=== PATIENT | female | born 1940 | race African-American/Black ===

== ENCOUNTER 2021-12-19 09:39 | Inpatient (IN) | payer MEDICARE, MEDICAID ==
[~2021-12-19] VITALS: Ht 162.6 cm; Wt 83.5 kg
[~2021-12-19 09:39] MED LIST: ASPI-1497 PO; CLAR10 PO; MESA800T PO; OMEP20CA14 PO; PANTOPRAZOLE SODIUM 40 MG/VIAL IV SCH; SIMV-46 PO
[2021-12-19] MEDS ORDERED: PANTOPRAZOLE SODIUM 40 MG/VIAL IV STA (11:49)
[2021-12-19] MEDS ORDERED: ONDANSETRON HCL 4MG/2ML INJ IV STA (11:49)
[2021-12-19] MEDS ORDERED: SODIUM CHLORIDE 0.9% 500 ML IV ONE (12:00)
[2021-12-19] MEDS ORDERED: MORPHINE SULFATE 4 MG/ML CPJ (NOT FOR IM USE) IV ONE (12:00)
[2021-12-19 12:52] LABS: MEAN CORPUSCULAR HEMOGLOBIN 19.1 pg (28.0-32.0); MEAN CORPUSCULAR VOLUME 65.6 fL (81.0-99.0); MEAN PLATELET VOLUME 6.9 fl (7.4-10.4); PLATELET 333 x1000/uL (130-400); RED BLOOD CELL COUNT 2.81 mill/uL (4.2-5.4); RED CELL DISTRIBUTION WIDTH 21.9 % (11.6-14.6)
[2021-12-19 12:56] LABS: CHLORIDE 106 mEq/L (98-107); HEMOGLOBIN. 5.4 g/dL (12.0-16.0)
[2021-12-19 12:57] LABS: HEMATOCRIT. 18.5 % (36.0-48.0)
[2021-12-19 13:04] LABS: ETHANOL BLOOD < 10 mg/dL
[2021-12-19 14:02] LABS: PLATELET ESTIMATE NORMAL
[2021-12-19 15:08] LABS: CLARITY URINE CLOUDY (CLEAR); COLOR URINE YELLOW (YELLOW); KETONES URINE TRACE (NEGATIVE); LEUKOCYTE ESTERASE URINE TRACE (NEGATIVE); NITRITE URINE NEGATIVE (NEGATIVE); OCCULT BLOOD URINE NEGATIVE (NEGATIVE); PH URINE 5.5 (4.5-8.0); PROTEIN URINE TRACE (NEGATIVE); SPECIFIC GRAVITY URINE 1.021 (1.005-1.030)
[2021-12-19] MEDS ORDERED: PANTOPRAZOLE SODIUM 40 MG/VIAL IV NR (15:30)
[2021-12-19] MEDS ORDERED: CEFTRIAXONE 1 G PREMIX 50 ML IV NR (15:30)
[2021-12-19 15:32] LABS: *AMPHETAMINES SCREEN URINE NEGATIVE (NEGATIVE); *BARBITURATES SCREEN URINE NEGATIVE (NEGATIVE); *BENZODIAZEPINES SCREEN URINE NEGATIVE (NEGATIVE); *COCAINE SCREEN URINE NEGATIVE (NEGATIVE); CANNABINOID URINE SCREEN NEGATIVE (NEGATIVE); METHADONE URINE SCREEN NEGATIVE (NEGATIVE); OPIATES URINE SCREEN NEGATIVE (NEGATIVE); PHENCYCLIDINE URINE SCREEN NEGATIVE (NEGATIVE)
[2021-12-19] MEDS ORDERED: ONDANSETRON HCL 4MG/2ML INJ IV PRN (16:15)
[2021-12-19] MEDS ORDERED: CLONIDINE 0.1MG TABLET PO PRN (16:15)
[2021-12-19] MEDS ORDERED: IPRATROPIUM/ALBUTEROL 0.5-3(2.5)MG/3ML NEB HHN PRN (16:15)
[2021-12-19] MEDS ORDERED: SODIUM CHLORIDE 0.9% 1,000 ML IV SCH (16:15)
[2021-12-19] MEDS ORDERED: DIPHENHYDRAMINE 50MG/ML VIAL IV PRN (16:15)
[2021-12-19 16:17] LABS: MEAN CORPUSCULAR HEMOGLOBIN 18.8 pg (28.0-32.0); MEAN PLATELET VOLUME 6.6 fl (7.4-10.4); PLATELET 319 x1000/uL (130-400); RED BLOOD CELL COUNT 2.66 mill/uL (4.2-5.4); RED CELL DISTRIBUTION WIDTH 21.3 % (11.6-14.6)
[2021-12-19 16:23] LABS: HEMATOCRIT. 17.3 % (36.0-48.0)
[2021-12-19 16:27] LABS: CHLORIDE 109 mEq/L (98-107)
[2021-12-19] MEDS ORDERED: LEVOFLOXACIN 500MG PREMIX 100 ML IV SCH (16:30)
[2021-12-19] MEDS ORDERED: METHYLPREDNISOLONE SOD SUCC 125 MG/2 ML VIAL IV SCH (16:30)
[2021-12-19 16:35] LABS: TOTAL IRON BINDING CAPACITY 388 ug/dL (250-450)
[2021-12-19 16:56] LABS: FERRITIN < 5 ng/mL (10-291)
[2021-12-19 16:58] LABS: VITAMIN B12 SERUM 814 pg/mL (211-911)
[2021-12-19] MEDS ORDERED: METRONIDAZOLE 500 MG PREMIX 100 ML IV SCH (17:00)
[2021-12-19 19:15] VITALS: BP 127/70
[2021-12-19 19:17] LABS: HEMATOCRIT 19.1 % (36.0-48.0); HEMOGLOBIN 5.4 g/dL (12.0-16.0)
[2021-12-19 20:00] VITALS: BP 127/70
[2021-12-19] MEDS ORDERED: PANTOPRAZOLE SODIUM 40 MG/VIAL IV SCH (21:00)
[2021-12-19] MEDS ORDERED: METHYLPREDNISOLONE SOD SUCC 40 MG/ML VIAL IV SCH (22:00)
[2021-12-19] MEDS ORDERED: CEFTRIAXONE 1 G PREMIX 50 ML IV SCH (22:00)
[2021-12-19] MEDS ORDERED: HYDROCODONE/ACETAMINOPHEN 5/325MG TABLET PO PRN (22:11)
[2021-12-19 22:18] VITALS: BP 132/62
[2021-12-19 22:40] LABS: PLATELET ESTIMATE NORMAL
[2021-12-19 22:41] VITALS: BP 142/71
[2021-12-19] MEDS: SODIUM CHLORIDE 0.9% 1,000 ML IV SCH (23:15)
[2021-12-19] MEDS: PANTOPRAZOLE SODIUM 40 MG/VIAL IV SCH (23:15)
[2021-12-19] MEDS: METHYLPREDNISOLONE SOD SUCC 125 MG/2 ML VIAL IV SCH (23:15)
[2021-12-19 23:41] VITALS: BP 150/74
[2021-12-20] VITALS (13 sets, daily range): BP systolic 111–145; BP diastolic 58–76
[2021-12-20] MEDS ORDERED: LEVOFLOXACIN 500MG PREMIX 100 ML IV SCH
[2021-12-20] MEDS: LEVOFLOXACIN 500MG PREMIX 100 ML IV SCH ×2 (01:59→20:47)
[2021-12-20 02:39] LABS: HEMATOCRIT 23.3 % (36.0-48.0)
[2021-12-20] MEDS: METRONIDAZOLE 500 MG PREMIX 100 ML IV SCH ×3 (03:08→21:46)
[2021-12-20 05:35] LABS: HEMATOCRIT. 22.8 % (36.0-48.0); MEAN CORPUSCULAR HEMOGLOBIN 20.7 pg (28.0-32.0); MEAN CORPUSCULAR VOLUME 69.9 fL (81.0-99.0); MEAN PLATELET VOLUME 6.7 fl (7.4-10.4); PLATELET 257 x1000/uL (130-400); RED BLOOD CELL COUNT 3.27 mill/uL (4.2-5.4); RED CELL DISTRIBUTION WIDTH 24.1 % (11.6-14.6)
[2021-12-20 05:45] LABS: CHLORIDE 108 mEq/L (98-107)
[2021-12-20 05:46] LABS: INR 1.1; PROTHROMBIN TIME 11.8 sec (9.6-11.0)
[2021-12-20 05:47] LABS: HEMOGLOBIN. 6.8 g/dL (12.0-16.0)
[2021-12-20] MEDS: SUCRALFATE 1 G/10 ML UDC PO SCH ×4 (06:33→20:48)
[2021-12-20] MEDS ORDERED: PANTOPRAZOLE SODIUM 40 MG/VIAL IV SCH (09:00)
[2021-12-20] MEDS: PANTOPRAZOLE SODIUM 40 MG/VIAL IV SCH (09:06)
[2021-12-20] MEDS: METHYLPREDNISOLONE SOD SUCC 125 MG/2 ML VIAL IV SCH ×2 (09:06→20:48)
[2021-12-20 10:46] LABS: NUCLEATED RED BLOOD CELLS 3 /100 WBC; PLATELET ESTIMATE NORMAL
[2021-12-20] MEDS: SODIUM CHLORIDE 0.9% 1,000 ML IV SCH (12:34)
[2021-12-20 16:24] LABS: HEMATOCRIT 24.8 % (36.0-48.0); HEMOGLOBIN 7.5 g/dL (12.0-16.0)
[2021-12-20 19:18] LABS: HEMATOCRIT 24.2 % (36.0-48.0); HEMOGLOBIN 7.2 g/dL (12.0-16.0)
[2021-12-21] VITALS (8 sets, daily range): BP systolic 122–152; BP diastolic 65–86
[2021-12-21] MEDS: SODIUM CHLORIDE 0.9% 1,000 ML IV SCH ×2 (02:19→17:51)
[2021-12-21] MEDS: METRONIDAZOLE 500 MG PREMIX 100 ML IV SCH ×3 (06:24→22:18)
[2021-12-21] MEDS: SUCRALFATE 1 G/10 ML UDC PO SCH ×4 (06:24→22:18)
[2021-12-21] MEDS: ACETAMINOPHEN 325MG TABLET PO PRN (07:44)
[2021-12-21 07:45] LABS: HEMATOCRIT 28.5 % (36.0-48.0); HEMOGLOBIN 8.8 g/dL (12.0-16.0)
[2021-12-21] MEDS: PANTOPRAZOLE SODIUM 40 MG/VIAL IV SCH (08:52)
[2021-12-21] MEDS: METHYLPREDNISOLONE SOD SUCC 125 MG/2 ML VIAL IV SCH ×2 (08:53→22:17)
[2021-12-21 16:05] LABS: HEMOGLOBIN 8.5 g/dL (12.0-16.0)
[2021-12-21] MEDS: SORBITOL 70% SOLN 30ML PO NR (16:05)
[2021-12-21] MEDS ORDERED: METOCLOPRAMIDE HCL 10MG/2ML VIAL IV NR ×2 (16:30→20:30)
[2021-12-21] MEDS ORDERED: BISACODYL 5MG TABLET PO NR ×2 (16:30→20:30)
[2021-12-21] MEDS: IRON SUCROSE COMPLEX 100 MG/5 ML ML IV SCH (17:52)
[2021-12-21] MEDS ORDERED: SORBITOL 70% SOLN 30ML PO NR (21:00)
[2021-12-21] MEDS: LEVOFLOXACIN 500MG PREMIX 100 ML IV SCH (22:33)
[2021-12-22] VITALS: BP 153/93
[2021-12-22 04:00] VITALS: BP 123/76
[2021-12-22] MEDS: METRONIDAZOLE 500 MG PREMIX 100 ML IV SCH ×3 (06:48→21:45)
[2021-12-22] MEDS: SODIUM CHLORIDE 0.9% 1,000 ML IV SCH ×2 (06:48→21:47)
[2021-12-22] MEDS: SUCRALFATE 1 G/10 ML UDC PO SCH ×4 (06:48→21:46)
[2021-12-22 06:57] LABS: INR 1.1; PROTHROMBIN TIME 11.4 sec (9.6-11.0)
[2021-12-22 06:59] LABS: HEMATOCRIT. 31.4 % (36.0-48.0); HEMOGLOBIN. 9.5 g/dL (12.0-16.0); MEAN CORPUSCULAR HEMOGLOBIN 22.2 pg (28.0-32.0); MEAN CORPUSCULAR VOLUME 73.6 fL (81.0-99.0); MEAN PLATELET VOLUME 7.6 fl (7.4-10.4); PLATELET 339 x1000/uL (130-400); RED BLOOD CELL COUNT 4.26 mill/uL (4.2-5.4)
[2021-12-22 07:16] LABS: CHLORIDE 108 mEq/L (98-107)
[2021-12-22 08:00] VITALS: BP 146/61
[2021-12-22] MEDS ORDERED: POTASSIUM CHLORIDE 20MEQ TABLET SR PO NR (08:30)
[2021-12-22] MEDS ORDERED: NALOXONE HCL 0.4MG/ML VIAL IV PRN (08:30)
[2021-12-22] MEDS: METHYLPREDNISOLONE SOD SUCC 125 MG/2 ML VIAL IV SCH ×2 (09:09→21:47)
[2021-12-22] MEDS: PANTOPRAZOLE SODIUM 40 MG/VIAL IV SCH (09:09)
[2021-12-22] MEDS: ACETAMINOPHEN 325MG TABLET PO PRN ×2 (09:10→18:13)
[2021-12-22 12:00] VITALS: BP 155/84
[2021-12-22] MEDS ORDERED: SIMETHICONE 40 MG/0.6 ML 15ML ONE (13:05)
[2021-12-22] MEDS ORDERED: ONDANSETRON HCL 4MG/2ML INJ ONE (13:13)
[2021-12-22] MEDS ORDERED: DEXAMETHASONE 4MG/ML 1ML VIAL ONE (13:13)
[2021-12-22] MEDS ORDERED: PROPOFOL 200MG/20ML VIAL IV ONE (13:13)
[2021-12-22] MEDS: SORBITOL 70% SOLN 30ML PO NR (15:06)
[2021-12-22 16:00] VITALS: BP 129/68
[2021-12-22] MEDS ORDERED: MESALAMINE 500 MG CAPSULE.ER PO SCH (17:00)
[2021-12-22] MEDS: IRON SUCROSE COMPLEX 100 MG/5 ML ML IV SCH (17:59)
[2021-12-22] MEDS: MESALAMINE 400 MG CAPSULE.DR PO SCH (18:13)
[2021-12-22 20:00] VITALS: BP 127/66
[2021-12-22 21:45] LABS: PLATELET ESTIMATE NORMAL
[2021-12-22] MEDS: LEVOFLOXACIN 250MG PREMIX 50 ML IV SCH (21:49)
[2021-12-23] VITALS: BP 162/92
[2021-12-23] MEDS: CLONIDINE 0.1MG TABLET PO PRN ×2 (01:33→05:53)
[2021-12-23 04:00] VITALS: BP 182/91
[2021-12-23] MEDS: METRONIDAZOLE 500 MG PREMIX 100 ML IV SCH ×3 (05:53→21:18)
[2021-12-23] MEDS: SUCRALFATE 1 G/10 ML UDC PO SCH ×4 (06:32→21:18)
[2021-12-23 07:05] LABS: HEMATOCRIT. 26.4 % (36.0-48.0); HEMOGLOBIN. 8.2 g/dL (12.0-16.0); MEAN CORPUSCULAR HEMOGLOBIN 22.6 pg (28.0-32.0); MEAN CORPUSCULAR VOLUME 72.8 fL (81.0-99.0); MEAN PLATELET VOLUME 7.6 fl (7.4-10.4); PLATELET 259 x1000/uL (130-400); RED BLOOD CELL COUNT 3.63 mill/uL (4.2-5.4); RED CELL DISTRIBUTION WIDTH 26.4 % (11.6-14.6)
[2021-12-23 07:15] LABS: CHLORIDE 110 mEq/L (98-107)
[2021-12-23 08:00] VITALS: BP 160/70
[2021-12-23] MEDS ORDERED: POTASSIUM CHLORIDE 20MEQ TABLET SR PO NR (09:15)
[2021-12-23] MEDS: METHYLPREDNISOLONE SOD SUCC 125 MG/2 ML VIAL IV SCH ×2 (09:36→21:18)
[2021-12-23] MEDS: PANTOPRAZOLE SODIUM 40 MG/VIAL IV SCH (09:36)
[2021-12-23] MEDS: MESALAMINE 400 MG CAPSULE.DR PO SCH ×3 (09:53→18:00)
[2021-12-23 12:00] VITALS: BP 142/72
[2021-12-23 16:00] VITALS: BP 138/88
[2021-12-23] MEDS: SORBITOL 70% SOLN 30ML PO NR (18:00)
[2021-12-23] MEDS: IRON SUCROSE COMPLEX 100 MG/5 ML ML IV SCH (19:04)
[2021-12-23 20:00] VITALS: BP 128/71
[2021-12-23] MEDS: LEVOFLOXACIN 250MG PREMIX 50 ML IV SCH (21:17)
[2021-12-23 21:58] LABS: PLATELET ESTIMATE NORMAL
[2021-12-24] VITALS: BP 158/79
[2021-12-24] MEDS: SODIUM CHLORIDE 0.9% 1,000 ML IV SCH ×2 (02:21→18:03)
[2021-12-24 04:00] VITALS: BP 177/91
[2021-12-24 04:07] LABS: OVA & PARASITE EXAM Final report (.)
[2021-12-24] MEDS: CLONIDINE 0.1MG TABLET PO PRN (06:06)
[2021-12-24] MEDS: METRONIDAZOLE 500 MG PREMIX 100 ML IV SCH ×3 (06:06→21:27)
[2021-12-24] MEDS: SUCRALFATE 1 G/10 ML UDC PO SCH ×4 (06:08→21:27)
[2021-12-24 07:19] LABS: HEMATOCRIT. 27.1 % (36.0-48.0); HEMOGLOBIN. 8.4 g/dL (12.0-16.0); MEAN CORPUSCULAR HEMOGLOBIN 22.6 pg (28.0-32.0); MEAN CORPUSCULAR VOLUME 73.1 fL (81.0-99.0); MEAN PLATELET VOLUME 8.5 fl (7.4-10.4); PLATELET 232 x1000/uL (130-400); RED BLOOD CELL COUNT 3.71 mill/uL (4.2-5.4); RED CELL DISTRIBUTION WIDTH 26.8 % (11.6-14.6)
[2021-12-24 07:36] LABS: CHLORIDE 108 mEq/L (98-107)
[2021-12-24 08:00] VITALS: BP 131/74
[2021-12-24] MEDS ORDERED: POTASSIUM CHLORIDE 20MEQ TABLET SR PO NR (09:30)
[2021-12-24] MEDS: PANTOPRAZOLE SODIUM 40 MG/VIAL IV SCH (09:43)
[2021-12-24] MEDS: METHYLPREDNISOLONE SOD SUCC 125 MG/2 ML VIAL IV SCH ×2 (09:48→21:28)
[2021-12-24] MEDS: MESALAMINE 400 MG CAPSULE.DR PO SCH ×3 (09:49→17:58)
[2021-12-24 12:00] VITALS: BP 154/86
[2021-12-24 16:00] VITALS: BP 162/81
[2021-12-24] MEDS: SORBITOL 70% SOLN 30ML PO NR (16:05)
[2021-12-24 16:57] LABS: PLATELET ESTIMATE NORMAL
[2021-12-24] MEDS: IRON SUCROSE COMPLEX 100 MG/5 ML ML IV SCH (17:59)
[2021-12-24 20:00] VITALS: BP 116/74
[2021-12-24 20:02] LABS: HEMATOCRIT 30.3 % (36.0-48.0); HEMOGLOBIN 9.3 g/dL (12.0-16.0)
[2021-12-25] VITALS: BP 135/78
[2021-12-25 01:54] LABS: HEMATOCRIT 29.1 % (36.0-48.0); HEMOGLOBIN 9.1 g/dL (12.0-16.0)
[2021-12-25 04:00] VITALS: BP 128/68
[2021-12-25 06:12] LABS: HEMATOCRIT. 28.7 % (36.0-48.0); HEMOGLOBIN. 8.9 g/dL (12.0-16.0); MEAN CORPUSCULAR HEMOGLOBIN 22.7 pg (28.0-32.0); MEAN CORPUSCULAR VOLUME 73.3 fL (81.0-99.0); MEAN PLATELET VOLUME 8.6 fl (7.4-10.4); PLATELET 227 x1000/uL (130-400); RED BLOOD CELL COUNT 3.91 mill/uL (4.2-5.4); RED CELL DISTRIBUTION WIDTH 27.5 % (11.6-14.6)
[2021-12-25] MEDS: SUCRALFATE 1 G/10 ML UDC PO SCH ×4 (06:24→21:32)
[2021-12-25 06:41] LABS: CHLORIDE 106 mEq/L (98-107)
[2021-12-25] MEDS: SODIUM CHLORIDE 0.9% 1,000 ML IV SCH (06:50)
[2021-12-25 08:00] VITALS: BP 169/88
[2021-12-25] MEDS: METHYLPREDNISOLONE SOD SUCC 125 MG/2 ML VIAL IV SCH ×3 (08:34→17:58)
[2021-12-25] MEDS: PANTOPRAZOLE SODIUM 40 MG/VIAL IV SCH (08:34)
[2021-12-25] MEDS ORDERED: POTASSIUM CHLORIDE 20MEQ/PACKET PO NR (09:00)
[2021-12-25] MEDS: MESALAMINE 400 MG CAPSULE.DR PO SCH ×3 (09:40→17:59)
[2021-12-25] MEDS: ACETAMINOPHEN 325MG TABLET PO PRN (09:44)
[2021-12-25 12:00] VITALS: BP 135/64
[2021-12-25 12:02] LABS: HEMATOCRIT 30.4 % (36.0-48.0); HEMOGLOBIN 9.3 g/dL (12.0-16.0)
[2021-12-25 16:00] VITALS: BP 160/88
[2021-12-25] MEDS: IRON SUCROSE COMPLEX 100 MG/5 ML ML IV SCH ×2 (17:00→17:59)
[2021-12-25] MEDS: CLONIDINE 0.1MG TABLET PO PRN (17:58)
[2021-12-25] MEDS: AZITHROMYCIN 500 MG TABLET PO SCH (17:59)
[2021-12-25 19:28] LABS: PLATELET ESTIMATE NORMAL
[2021-12-25 19:34] LABS: HEMATOCRIT 30.4 % (36.0-48.0); HEMOGLOBIN 9.4 g/dL (12.0-16.0)
[2021-12-25] MEDS: SODIUM CHL 0.9% + KCL 20MEQ/L 1,000 ML IV SCH (20:00)
[2021-12-25 20:01] VITALS: BP 155/80
[2021-12-26] VITALS: BP 128/77
[2021-12-26 04:00] VITALS: BP 136/84
[2021-12-26] MEDS: SODIUM CHL 0.9% + KCL 20MEQ/L 1,000 ML IV SCH ×3 (04:00→23:49)
[2021-12-26] MEDS: SUCRALFATE 1 G/10 ML UDC PO SCH ×4 (06:40→20:44)
[2021-12-26 06:46] LABS: BASOPHILS % 0.1 % (0.0-2.0); EOSINOPHILS % 1.9 % (0.0-5.0); HEMATOCRIT. 27.7 % (36.0-48.0); HEMOGLOBIN. 8.7 g/dL (12.0-16.0); LYMPHOCYTES % 23.6 % (20.0-50.0); MEAN CORPUSCULAR HEMOGLOBIN 23.3 pg (28.0-32.0); MEAN CORPUSCULAR VOLUME 74.2 fL (81.0-99.0); MEAN PLATELET VOLUME 8.5 fl (7.4-10.4); MONOCYTES % 12.2 % (2.0-8.0); NEUTROPHILS % 62.2 % (40.0-76.0); PLATELET 192 x1000/uL (130-400); RED BLOOD CELL COUNT 3.73 mill/uL (4.2-5.4)
[2021-12-26 06:55] LABS: CHLORIDE 105 mEq/L (98-107)
[2021-12-26 08:00] VITALS: BP 125/57
[2021-12-26] MEDS: AZITHROMYCIN 500 MG TABLET PO SCH (09:07)
[2021-12-26] MEDS: MESALAMINE 400 MG CAPSULE.DR PO SCH ×3 (09:07→18:21)
[2021-12-26] MEDS ORDERED: LIDOCAINE HCL/PF 1% 10 MG/ML 5ML VIAL ONE (09:13)
[2021-12-26] MEDS ORDERED: POTASSIUM CHLORIDE 20MEQ TABLET SR PO NR (10:15)
[2021-12-26] MEDS: PANTOPRAZOLE SODIUM 40 MG/VIAL IV SCH (13:59)
[2021-12-26] MEDS: METHYLPREDNISOLONE SOD SUCC 125 MG/2 ML VIAL IV SCH ×2 (13:59→20:44)
[2021-12-26 16:00] VITALS: BP 140/74
[2021-12-26 20:00] VITALS: BP 126/99
[2021-12-26] MEDS: ACETAMINOPHEN 325MG TABLET PO PRN (21:11)
[2021-12-26] MEDS: CLONIDINE 0.1MG TABLET PO PRN (23:50)
[2021-12-27] VITALS: BP 165/94
[2021-12-27 04:00] VITALS: BP 161/100
[2021-12-27] MEDS: CLONIDINE 0.1MG TABLET PO PRN (04:05)
[2021-12-27 04:34] LABS: PLATELET ESTIMATE NORMAL
[2021-12-27] MEDS: SUCRALFATE 1 G/10 ML UDC PO SCH ×4 (06:27→21:27)
[2021-12-27 06:55] LABS: CHLORIDE 106 mEq/L (98-107)
[2021-12-27 06:58] LABS: HEMATOCRIT. 26.6 % (36.0-48.0); HEMOGLOBIN. 8.3 g/dL (12.0-16.0); MEAN CORPUSCULAR HEMOGLOBIN 23.4 pg (28.0-32.0); MEAN CORPUSCULAR VOLUME 75.3 fL (81.0-99.0); MEAN PLATELET VOLUME 8.6 fl (7.4-10.4); PLATELET 167 x1000/uL (130-400); RED BLOOD CELL COUNT 3.54 mill/uL (4.2-5.4); RED CELL DISTRIBUTION WIDTH 28.8 % (11.6-14.6)
[2021-12-27 08:00] VITALS: BP 140/79
[2021-12-27] MEDS: PANTOPRAZOLE SODIUM 40 MG/VIAL IV SCH (08:48)
[2021-12-27] MEDS: MESALAMINE 400 MG CAPSULE.DR PO SCH ×3 (08:48→17:28)
[2021-12-27] MEDS: METHYLPREDNISOLONE SOD SUCC 125 MG/2 ML VIAL IV SCH ×2 (08:48→21:27)
[2021-12-27] MEDS: AZITHROMYCIN 500 MG TABLET PO SCH (08:48)
[2021-12-27] MEDS: ACETAMINOPHEN 325MG TABLET PO PRN (08:49)
[2021-12-27 12:00] VITALS: BP 145/74
[2021-12-27] MEDS: SODIUM CHL 0.9% + KCL 20MEQ/L 1,000 ML IV SCH ×2 (12:11→21:27)
[2021-12-27 14:12] LABS: PLATELET ESTIMATE NORMAL
[2021-12-27 16:00] VITALS: BP 144/72
[2021-12-27 20:00] VITALS: BP 155/72
[2021-12-28] VITALS (7 sets, daily range): BP systolic 149–174; BP diastolic 79–94
[2021-12-28] MEDS: CLONIDINE 0.1MG TABLET PO PRN ×3 (04:06→21:01)
[2021-12-28] MEDS: SUCRALFATE 1 G/10 ML UDC PO SCH ×4 (06:31→20:54)
[2021-12-28 06:35] LABS: HEMATOCRIT. 27.7 % (36.0-48.0); HEMOGLOBIN. 8.7 g/dL (12.0-16.0); MEAN CORPUSCULAR HEMOGLOBIN 23.7 pg (28.0-32.0); MEAN CORPUSCULAR VOLUME 75.3 fL (81.0-99.0); MEAN PLATELET VOLUME 8.4 fl (7.4-10.4); PLATELET 161 x1000/uL (130-400); RED BLOOD CELL COUNT 3.68 mill/uL (4.2-5.4); RED CELL DISTRIBUTION WIDTH 28.5 % (11.6-14.6)
[2021-12-28 07:50] LABS: CHLORIDE 107 mEq/L (98-107)
[2021-12-28] MEDS: PANTOPRAZOLE SODIUM 40 MG/VIAL IV SCH (09:52)
[2021-12-28] MEDS: MESALAMINE 400 MG CAPSULE.DR PO SCH ×3 (09:52→17:02)
[2021-12-28] MEDS: ACETAMINOPHEN 325MG TABLET PO PRN (09:52)
[2021-12-28] MEDS: METHYLPREDNISOLONE SOD SUCC 125 MG/2 ML VIAL IV SCH ×2 (09:53→20:54)
[2021-12-28] MEDS: SODIUM CHL 0.9% + KCL 20MEQ/L 1,000 ML IV SCH ×3 (13:43→21:02)
[2021-12-29] VITALS: BP 158/80
[2021-12-29 04:00] VITALS: BP 150/89
[2021-12-29] MEDS: SUCRALFATE 1 G/10 ML UDC PO SCH ×4 (05:51→21:06)
[2021-12-29 06:48] LABS: PLATELET ESTIMATE NORMAL
[2021-12-29 07:10] LABS: MEAN CORPUSCULAR HEMOGLOBIN 23.5 pg (28.0-32.0); MEAN CORPUSCULAR VOLUME 75.6 fL (81.0-99.0); MEAN PLATELET VOLUME 8.8 fl (7.4-10.4); PLATELET 147 x1000/uL (130-400); RED BLOOD CELL COUNT 3.83 mill/uL (4.2-5.4)
[2021-12-29 08:06] VITALS: BP 187/94
[2021-12-29 08:12] LABS: CHLORIDE 105 mEq/L (98-107)
[2021-12-29] MEDS: CLONIDINE 0.1MG TABLET PO PRN ×3 (08:26→16:55)
[2021-12-29] MEDS: MESALAMINE 400 MG CAPSULE.DR PO SCH ×3 (08:26→16:55)
[2021-12-29] MEDS: PANTOPRAZOLE SODIUM 40 MG/VIAL IV SCH (08:26)
[2021-12-29] MEDS: ACETAMINOPHEN 325MG TABLET PO PRN (08:26)
[2021-12-29] MEDS ORDERED: PREDNISONE 20MG TABLET PO SCH (09:00)
[2021-12-29 12:00] VITALS: BP 173/97
[2021-12-29] MEDS: SODIUM CHL 0.9% + KCL 20MEQ/L 1,000 ML IV SCH (12:54)
[2021-12-29 13:06] LABS: ATYPICAL pANCA <1:20 titer (Neg:<1:20); SACCHAROMYCES CEREVISIAE IGG <20.0 Units (0.0-24.9); SACCHAROMYCES CEREVISIAE IGM <20.0 Units (0.0-24.9)
[2021-12-29 14:06] LABS: PLATELET ESTIMATE NORMAL
[2021-12-29 16:00] VITALS: BP 169/91
[2021-12-29 20:00] VITALS: BP 153/86
[2021-12-29] MEDS: AMLODIPINE 5MG TABLET PO SCH (21:06)
[2021-12-30] VITALS: BP 166/64
[2021-12-30] MEDS: CLONIDINE 0.1MG TABLET PO PRN (00:30)
[2021-12-30] MEDS: SODIUM CHL 0.9% + KCL 20MEQ/L 1,000 ML IV SCH ×3 (00:31→12:47)
[2021-12-30 04:00] VITALS: BP 158/94
[2021-12-30] MEDS: ACETAMINOPHEN 325MG TABLET PO PRN (04:02)
[2021-12-30] MEDS: SUCRALFATE 1 G/10 ML UDC PO SCH ×4 (07:24→20:54)
[2021-12-30] MEDS: MESALAMINE 400 MG CAPSULE.DR PO SCH ×3 (07:24→18:26)
[2021-12-30 08:27] LABS: CHLORIDE 104 mEq/L (98-107)
[2021-12-30 08:32] LABS: HEMATOCRIT. 29.8 % (36.0-48.0); HEMOGLOBIN. 9.3 g/dL (12.0-16.0); MEAN CORPUSCULAR VOLUME 76.7 fL (81.0-99.0); MEAN PLATELET VOLUME 8.5 fl (7.4-10.4); PLATELET 136 x1000/uL (130-400); RED BLOOD CELL COUNT 3.88 mill/uL (4.2-5.4); RED CELL DISTRIBUTION WIDTH 31.5 % (11.6-14.6)
[2021-12-30 10:18] VITALS: BP 119/80
[2021-12-30] MEDS: AMLODIPINE 5MG TABLET PO SCH ×2 (10:20→20:54)
[2021-12-30] MEDS: PANTOPRAZOLE SODIUM 40 MG/VIAL IV SCH (10:20)
[2021-12-30] MEDS: PREDNISONE 20MG TABLET PO SCH (10:21)
[2021-12-30 12:12] VITALS: BP 137/78
[2021-12-30 16:04] VITALS: BP 142/85
[2021-12-30 20:00] VITALS: BP_SYST 143; BP_SYST 171; BP_DIAS 81; BP_DIAS 88
[2021-12-30 22:08] LABS: PLATELET ESTIMATE NORMAL
[2021-12-31] VITALS: BP 152/69
[2021-12-31 04:00] VITALS: BP 155/92
[2021-12-31] MEDS: SODIUM CHL 0.9% + KCL 20MEQ/L 1,000 ML IV SCH ×2 (04:51→16:38)
[2021-12-31] MEDS: ACETAMINOPHEN 325MG TABLET PO PRN (04:51)
[2021-12-31] MEDS: SUCRALFATE 1 G/10 ML UDC PO SCH ×3 (06:35→18:22)
[2021-12-31 07:05] LABS: HEMATOCRIT. 30.9 % (36.0-48.0); HEMOGLOBIN. 9.8 g/dL (12.0-16.0); MEAN CORPUSCULAR HEMOGLOBIN 24.3 pg (28.0-32.0); MEAN CORPUSCULAR VOLUME 76.2 fL (81.0-99.0); PLATELET 141 x1000/uL (130-400); RED BLOOD CELL COUNT 4.05 mill/uL (4.2-5.4); RED CELL DISTRIBUTION WIDTH 32.9 % (11.6-14.6)
[2021-12-31 07:17] LABS: CHLORIDE 104 mEq/L (98-107)
[2021-12-31 08:00] VITALS: BP 148/82
[2021-12-31] MEDS: MESALAMINE 400 MG CAPSULE.DR PO SCH ×3 (09:48→18:22)
[2021-12-31] MEDS: PANTOPRAZOLE SODIUM 40 MG/VIAL IV SCH (09:48)
[2021-12-31] MEDS: PREDNISONE 20MG TABLET PO SCH (09:49)
[2021-12-31] MEDS: AMLODIPINE 5MG TABLET PO SCH (09:49)
[2021-12-31 12:00] VITALS: BP 151/86
[2021-12-31 13:42] LABS: PLATELET ESTIMATE NORMAL
[2021-12-31] MEDS ORDERED: SUCR1ORA15 PO (13:43)
[2021-12-31] MEDS ORDERED: P20 PO (13:43)
[2021-12-31] MEDS ORDERED: AMLO5TAB88 PO (13:43)
[2021-12-31 16:00] VITALS: BP 117/75
[2021-12-31 17:32] VITALS: BP 117/75
== END 2021-12-31 19:16 | disposition home health service (06) | DRG 245 ==
LOC: ER 09:39 → EDBEDREQ 15:34 → ENRESERV 17:15 → 6WST 20:25
PROVIDERS: ADMIT Internal Medicine; ATTEND Internal Medicine
PROC: 30233N1 Transfusion of Nonautologous Red Blood Cells into Peripheral Vein, Percutaneous Approach (ICD-10-PCS; 2021-12-19)
PROC: 0DBQ8ZX Excision of Anus, Via Natural or Artificial Opening Endoscopic, Diagnostic (ICD-10-PCS; principal; 2021-12-22)
PROC: 0DBN8ZX Excision of Sigmoid Colon, Via Natural or Artificial Opening Endoscopic, Diagnostic (ICD-10-PCS; 2021-12-22)
PROC: 0DBP8ZX Excision of Rectum, Via Natural or Artificial Opening Endoscopic, Diagnostic (ICD-10-PCS; 2021-12-22)
PROC: 0DB98ZX Excision of Duodenum, Via Natural or Artificial Opening Endoscopic, Diagnostic (ICD-10-PCS; 2021-12-22)
PROC: 0DB78ZX Excision of Stomach, Pylorus, Via Natural or Artificial Opening Endoscopic, Diagnostic (ICD-10-PCS; 2021-12-22)
PROC: 02HV33Z Insertion of Infusion Device into Superior Vena Cava, Percutaneous Approach (ICD-10-PCS; 2021-12-26)
PROC: B548ZZA Ultrasonography of Superior Vena Cava, Guidance (ICD-10-PCS; 2021-12-26)
PROC: B518ZZA Fluoroscopy of Superior Vena Cava, Guidance (ICD-10-PCS; 2021-12-26)
DX: K51.911 Ulcerative colitis, unspecified with rectal bleeding (principal); I82.621 Acute embolism and thrombosis of deep veins of right upper extremity; R78.81 Bacteremia; I11.9 Hypertensive heart disease without heart failure; I31.3 Pericardial effusion (noninflammatory); E78.5 Hyperlipidemia, unspecified; K80.80 Other cholelithiasis without obstruction; K57.90 Diverticulosis of intestine, part unspecified, without perforation or abscess without bleeding; B96.89 Other specified bacterial agents as the cause of diseases classified elsewhere; E66.9 Obesity, unspecified; D25.9 Leiomyoma of uterus, unspecified; D50.9 Iron deficiency anemia, unspecified; E87.6 Hypokalemia; K62.89 Other specified diseases of anus and rectum; I89.0 Lymphedema, not elsewhere classified; M19.90 Unspecified osteoarthritis, unspecified site; R60.0 Localized edema; Z20.822 Contact with and (suspected) exposure to COVID-19; I08.3 Combined rheumatic disorders of mitral, aortic and tricuspid valves; R94.31 Abnormal electrocardiogram [ECG] [EKG]; I82.B11 Acute embolism and thrombosis of right subclavian vein; K29.70 Gastritis, unspecified, without bleeding; Z85.41 Personal history of malignant neoplasm of cervix uteri; Z91.14 Patient's other noncompliance with medication regimen; Z79.899 Other long term (current) drug therapy; Z79.82 Long term (current) use of aspirin; Z68.31 Body mass index [BMI] 31.0-31.9, adult; K80.20 Calculus of gallbladder without cholecystitis without obstruction
CPT/HCPCS: 36415; 36573; 71045; 74176; 80048; 80053; 80305; 80320; 81003; 82270; 82607; 82705; 82728; 82746; 83520; 83540; 83550; 83605; 83735; 83880; 85014; 85018; 85025; 85044; 86256; 86671; 86850; 86900; 86920; 87045; 87177; 87209; 87426; 87449; 88305; 88312; 88313; 89055; 93005; 93306; 93970; 93971; 99291; C1725; C9113; J1100; J1956; J2405; J2704; J2765; J2930; J3480; J3490; J7030; J7040; J7512; P9016; G0480

== ENCOUNTER 2022-01-01 16:00 | Inpatient (IN) | payer MEDICARE, OTHER ==
[~2022-01-01] VITALS: Ht 160 cm; Wt 91.8 kg
[~2022-01-01 16:00] MED LIST changes: +AMLO5TAB88 PO; -ASPI-1497 PO; +P20 PO; -PANTOPRAZOLE SODIUM 40 MG/VIAL IV SCH; +SUCR1ORA15 PO
[2022-01-01] MEDS ORDERED: PANTOPRAZOLE SODIUM 40 MG/VIAL IV STA (16:39)
[2022-01-01 18:12] LABS: HEMATOCRIT. 30.8 % (36.0-48.0); HEMOGLOBIN. 9.7 g/dL (12.0-16.0); MEAN CORPUSCULAR HEMOGLOBIN 24.5 pg (28.0-32.0); MEAN CORPUSCULAR VOLUME 77.8 fL (81.0-99.0); MEAN PLATELET VOLUME 8.8 fl (7.4-10.4); PLATELET 156 x1000/uL (130-400); RED BLOOD CELL COUNT 3.96 mill/uL (4.2-5.4); RED CELL DISTRIBUTION WIDTH 32.8 % (11.6-14.6)
[2022-01-01 18:21] LABS: INR 1.1; PROTHROMBIN TIME 11.3 sec (9.6-11.0)
[2022-01-01 19:21] LABS: CHLORIDE 106 mEq/L (98-107)
[2022-01-01] MEDS ORDERED: FUROSEMIDE 40MG/4ML VIAL IVP NR (20:00)
[2022-01-01 20:47] LABS: PLATELET ESTIMATE NORMAL
[2022-01-02] MEDS ORDERED: DEXTROSE 50% WATER 50ML SYRINGE IV PRN ×2 (00:15→05:00)
[2022-01-02] MEDS ORDERED: MAGNESIUM/ALUMINUM HYDROXIDE/SIMETHICONE 30ML UDC PO PRN (00:15)
[2022-01-02] MEDS ORDERED: ACETAMINOPHEN 325MG TABLET PO PRN (00:15)
[2022-01-02] MEDS ORDERED: ZOLPIDEM TARTRATE 5MG TABLET PO PRN (00:15)
[2022-01-02 00:50] VITALS: BP 154/88
[2022-01-02] MEDS: ENOXAPARIN 100MG/ML SYR SUBCUT SCH ×2 (03:00→14:59)
[2022-01-02] MEDS: SODIUM CHLORIDE 0.9% INJ 3ML FLUSH IVF SCH ×2 (06:28→13:48)
[2022-01-02] MEDS ORDERED: BLOOD SUGAR DIAGNOSTIC STRIP TEST SCH ×2 (07:20→09:00)
[2022-01-02] MEDS ORDERED: INSULIN LISPRO 100 UNITS/ML SUBCUT SCH ×2 (07:50→08:20)
[2022-01-02 08:30] VITALS: BP 151/83
[2022-01-02] MEDS ORDERED: ENOXAPARIN 40MG/0.4ML SYR SUBCUT SCH (09:00)
[2022-01-02] MEDS: MESALAMINE 400 MG CAPSULE.DR PO SCH ×3 (09:05→17:37)
[2022-01-02] MEDS: PANTOPRAZOLE 40MG DR TABLET PO SCH ×2 (09:05→21:27)
[2022-01-02] MEDS: AMLODIPINE 5MG TABLET PO SCH ×2 (09:06→21:28)
[2022-01-02] MEDS: PREDNISONE 20MG TABLET PO SCH (09:06)
[2022-01-02 12:00] VITALS: BP 156/79
[2022-01-02 16:00] VITALS: BP 155/84
[2022-01-02 20:00] VITALS: BP 156/83
[2022-01-03] VITALS (11 sets, daily range): BP systolic 110–170; BP diastolic 70–97
[2022-01-03] MEDS: CLONIDINE 0.1MG TABLET PO PRN (00:04)
[2022-01-03] MEDS: SODIUM CHLORIDE 0.9% INJ 3ML FLUSH IVF SCH ×3 (00:08→21:06)
[2022-01-03] MEDS: ENOXAPARIN 100MG/ML SYR SUBCUT SCH (02:35)
[2022-01-03] MEDS: PANTOPRAZOLE 40MG DR TABLET PO SCH (09:00)
[2022-01-03] MEDS: AMLODIPINE 5MG TABLET PO SCH ×2 (09:01→21:07)
[2022-01-03] MEDS: PREDNISONE 20MG TABLET PO SCH (09:01)
[2022-01-03] MEDS: MESALAMINE 400 MG CAPSULE.DR PO SCH ×3 (09:01→17:00)
[2022-01-03 11:41] LABS: HEMATOCRIT. 26.9 % (36.0-48.0); HEMOGLOBIN. 8.5 g/dL (12.0-16.0); MEAN CORPUSCULAR HEMOGLOBIN 24.8 pg (28.0-32.0); MEAN CORPUSCULAR VOLUME 78.3 fL (81.0-99.0); MEAN PLATELET VOLUME 8.5 fl (7.4-10.4); PLATELET 148 x1000/uL (130-400); RED BLOOD CELL COUNT 3.44 mill/uL (4.2-5.4); RED CELL DISTRIBUTION WIDTH 34.4 % (11.6-14.6)
[2022-01-03 16:24] LABS: BASOPHILS % 0.1 % (0.0-2.0); EOSINOPHILS % 0.1 % (0.0-5.0); HEMATOCRIT. 25.3 % (36.0-48.0); HEMOGLOBIN. 7.8 g/dL (12.0-16.0); MEAN CORPUSCULAR HEMOGLOBIN 24.7 pg (28.0-32.0); MEAN CORPUSCULAR VOLUME 79.6 fL (81.0-99.0); MEAN PLATELET VOLUME 8.5 fl (7.4-10.4); MONOCYTES % 8.1 % (2.0-8.0); NEUTROPHILS % 83.7 % (40.0-76.0); PLATELET 143 x1000/uL (130-400); RED BLOOD CELL COUNT 3.18 mill/uL (4.2-5.4); RED CELL DISTRIBUTION WIDTH 35.1 % (11.6-14.6)
[2022-01-03] MEDS: SUCRALFATE 1G TABLET PO SCH ×2 (17:00→21:07)
[2022-01-03] MEDS: PANTOPRAZOLE SODIUM 40 MG/VIAL IV SCH (21:07)
[2022-01-03] MEDS: ACETAMINOPHEN 325MG TABLET PO PRN (21:12)
[2022-01-03 23:44] LABS: HEMATOCRIT 25.9 % (36.0-48.0); HEMOGLOBIN 8.1 g/dL (12.0-16.0)
[2022-01-04] VITALS (11 sets, daily range): BP systolic 103–147; BP diastolic 51–82
[2022-01-04] MEDS: SODIUM CHLORIDE 0.9% INJ 3ML FLUSH IVF SCH ×3 (05:33→22:30)
[2022-01-04 06:30] LABS: BASOPHILS % 0.2 % (0.0-2.0); EOSINOPHILS % 0.9 % (0.0-5.0); HEMATOCRIT. 29.5 % (36.0-48.0); HEMOGLOBIN. 9.9 g/dL (12.0-16.0); LYMPHOCYTES % 26.1 % (20.0-50.0); MEAN CORPUSCULAR HEMOGLOBIN 26.9 pg (28.0-32.0); MEAN CORPUSCULAR VOLUME 80.2 fL (81.0-99.0); MEAN PLATELET VOLUME 8.7 fl (7.4-10.4); MONOCYTES % 12.6 % (2.0-8.0); NEUTROPHILS % 60.2 % (40.0-76.0); PLATELET 132 x1000/uL (130-400); RED BLOOD CELL COUNT 3.68 mill/uL (4.2-5.4); RED CELL DISTRIBUTION WIDTH 32.3 % (11.6-14.6)
[2022-01-04 06:43] LABS: CHLORIDE 105 mEq/L (98-107)
[2022-01-04] MEDS: METHYLPREDNISOLONE SOD SUCC 40 MG/ML VIAL IV SCH ×2 (09:03→21:47)
[2022-01-04] MEDS: PANTOPRAZOLE SODIUM 40 MG/VIAL IV SCH ×2 (09:03→21:46)
[2022-01-04] MEDS: MESALAMINE 400 MG CAPSULE.DR PO SCH ×3 (09:03→17:42)
[2022-01-04] MEDS: SUCRALFATE 1G TABLET PO SCH ×4 (09:03→21:46)
[2022-01-04] MEDS: AMLODIPINE 5MG TABLET PO SCH ×2 (09:04→21:00)
[2022-01-04 12:58] LABS: HEMATOCRIT 30.9 % (36.0-48.0); HEMOGLOBIN 9.9 g/dL (12.0-16.0)
[2022-01-04 14:35] LABS: PLATELET ESTIMATE NORMAL
[2022-01-04 15:37] LABS: PLATELET ESTIMATE NORMAL
[2022-01-04 17:14] LABS: HEMATOCRIT 30.9 % (36.0-48.0); HEMOGLOBIN 9.9 g/dL (12.0-16.0)
[2022-01-04 20:21] LABS: HEMOGLOBIN 9.6 g/dL (12.0-16.0)
[2022-01-05] VITALS: BP 122/79
[2022-01-05 04:00] VITALS: BP 127/83
[2022-01-05 04:44] LABS: CHLORIDE 104 mEq/L (98-107)
[2022-01-05] MEDS: SODIUM CHLORIDE 0.9% INJ 3ML FLUSH IVF SCH ×3 (06:07→21:40)
[2022-01-05] MEDS: SUCRALFATE 1G TABLET PO SCH ×4 (06:22→21:39)
[2022-01-05 06:29] LABS: HEMATOCRIT. 31.9 % (36.0-48.0); HEMOGLOBIN. 10.3 g/dL (12.0-16.0); MEAN CORPUSCULAR HEMOGLOBIN 25.8 pg (28.0-32.0); MEAN PLATELET VOLUME 8.8 fl (7.4-10.4); PLATELET 169 x1000/uL (130-400); RED BLOOD CELL COUNT 3.99 mill/uL (4.2-5.4); RED CELL DISTRIBUTION WIDTH 32.6 % (11.6-14.6)
[2022-01-05 07:57] VITALS: BP 147/77
[2022-01-05] MEDS: MESALAMINE 400 MG CAPSULE.DR PO SCH ×3 (09:08→16:58)
[2022-01-05] MEDS: AMLODIPINE 5MG TABLET PO SCH ×2 (09:08→21:39)
[2022-01-05] MEDS: PANTOPRAZOLE SODIUM 40 MG/VIAL IV SCH ×2 (09:08→21:37)
[2022-01-05] MEDS: METHYLPREDNISOLONE SOD SUCC 40 MG/ML VIAL IV SCH ×2 (09:08→21:37)
[2022-01-05 10:33] LABS: HEMATOCRIT 31.3 % (36.0-48.0); HEMOGLOBIN 10.1 g/dL (12.0-16.0)
[2022-01-05 12:00] VITALS: BP 140/75
[2022-01-05 16:00] VITALS: BP 134/77
[2022-01-05 18:00] LABS: PLATELET ESTIMATE NORMAL
[2022-01-05 20:00] VITALS: BP 114/56
[2022-01-06] VITALS: BP 147/78
[2022-01-06 04:00] VITALS: BP 151/88
[2022-01-06] MEDS: SODIUM CHLORIDE 0.9% INJ 3ML FLUSH IVF SCH ×3 (06:00→21:33)
[2022-01-06] MEDS: SUCRALFATE 1G TABLET PO SCH ×4 (06:44→21:32)
[2022-01-06 07:16] LABS: CHLORIDE 102 mEq/L (98-107)
[2022-01-06 07:53] VITALS: BP 125/80
[2022-01-06 07:59] LABS: HEMATOCRIT. 34.5 % (36.0-48.0); HEMOGLOBIN. 10.7 g/dL (12.0-16.0); MEAN CORPUSCULAR HEMOGLOBIN 26.6 pg (28.0-32.0); MEAN CORPUSCULAR VOLUME 85.3 fL (81.0-99.0); MEAN PLATELET VOLUME 7.9 fl (7.4-10.4); PLATELET 194 x1000/uL (130-400); RED BLOOD CELL COUNT 4.04 mill/uL (4.2-5.4)
[2022-01-06] MEDS: PANTOPRAZOLE SODIUM 40 MG/VIAL IV SCH ×2 (08:43→21:32)
[2022-01-06] MEDS: METHYLPREDNISOLONE SOD SUCC 40 MG/ML VIAL IV SCH ×2 (08:44→21:33)
[2022-01-06] MEDS: AMLODIPINE 5MG TABLET PO SCH ×2 (08:44→21:00)
[2022-01-06] MEDS: MESALAMINE 400 MG CAPSULE.DR PO SCH ×3 (08:44→18:02)
[2022-01-06 12:00] VITALS: BP 138/80
[2022-01-06] MEDS ORDERED: MIDAZOLAM HCL 2 MG/2 ML VIAL ONE (12:02)
[2022-01-06] MEDS ORDERED: FENTANYL CITRATE/PF 50MCG/ML 2ML VIAL ONE (12:02)
[2022-01-06] MEDS ORDERED: HEPARIN 1000 UNITS/ML 10ML ONE (12:02)
[2022-01-06] MEDS ORDERED: LIDOCAINE HCL 1% 10 MG/ML 10ML VIAL ONE (12:02)
[2022-01-06] MEDS ORDERED: IODIXANOL 320MG/ML 100 ML BOTTLE IV ONE (12:02)
[2022-01-06 12:47] LABS: PLATELET ESTIMATE NORMAL
[2022-01-06 16:00] VITALS: BP 113/74
[2022-01-06 20:00] VITALS: BP 96/67
[2022-01-07] VITALS: BP 126/79
[2022-01-07 04:00] VITALS: BP 157/83
[2022-01-07] MEDS: SUCRALFATE 1G TABLET PO SCH ×4 (06:03→20:48)
[2022-01-07] MEDS: SODIUM CHLORIDE 0.9% INJ 3ML FLUSH IVF SCH (06:03)
[2022-01-07 07:19] LABS: HEMATOCRIT. 30.8 % (36.0-48.0); HEMOGLOBIN. 10.2 g/dL (12.0-16.0); MEAN CORPUSCULAR VOLUME 81.6 fL (81.0-99.0); MEAN PLATELET VOLUME 8.5 fl (7.4-10.4); PLATELET 189 x1000/uL (130-400); RED BLOOD CELL COUNT 3.78 mill/uL (4.2-5.4); RED CELL DISTRIBUTION WIDTH 33.9 % (11.6-14.6)
[2022-01-07 08:00] VITALS: BP 153/83
[2022-01-07 08:08] LABS: CHLORIDE 102 mEq/L (98-107)
[2022-01-07] MEDS: PANTOPRAZOLE SODIUM 40 MG/VIAL IV SCH (09:35)
[2022-01-07] MEDS: METHYLPREDNISOLONE SOD SUCC 40 MG/ML VIAL IV SCH ×2 (09:35→20:48)
[2022-01-07] MEDS: MESALAMINE 400 MG CAPSULE.DR PO SCH ×3 (09:36→18:46)
[2022-01-07] MEDS: AMLODIPINE 5MG TABLET PO SCH (09:36)
[2022-01-07 10:05] LABS: PLATELET ESTIMATE NORMAL
[2022-01-07] MEDS ORDERED: METOPROLOL TARTRATE 50MG TABLET PO NR (11:15)
[2022-01-07 12:00] VITALS: BP 122/64
[2022-01-07 16:00] VITALS: BP 164/90
[2022-01-07 17:20] LABS: HEMATOCRIT 30.7 % (36.0-48.0)
[2022-01-07] MEDS: CLONIDINE 0.1MG TABLET PO PRN (18:46)
[2022-01-07 20:00] VITALS: BP 121/68
[2022-01-07] MEDS: PANTOPRAZOLE 40MG DR TABLET PO SCH (20:51)
[2022-01-07] MEDS ORDERED: METOPROLOL TARTRATE 50MG TABLET PO SCH (21:00)
[2022-01-07 22:45] LABS: HEMATOCRIT 30.4 % (36.0-48.0); HEMOGLOBIN 9.8 g/dL (12.0-16.0)
[2022-01-08] VITALS: BP 135/79
[2022-01-08 04:00] VITALS: BP 124/77
[2022-01-08] MEDS: ACETAMINOPHEN 325MG TABLET PO PRN (05:11)
[2022-01-08 06:54] LABS: HEMATOCRIT. 29.6 % (36.0-48.0); HEMOGLOBIN. 9.6 g/dL (12.0-16.0); MEAN CORPUSCULAR HEMOGLOBIN 26.6 pg (28.0-32.0); MEAN CORPUSCULAR VOLUME 82.4 fL (81.0-99.0); MEAN PLATELET VOLUME 8.6 fl (7.4-10.4); PLATELET 180 x1000/uL (130-400); RED BLOOD CELL COUNT 3.59 mill/uL (4.2-5.4)
[2022-01-08 07:29] LABS: CHLORIDE 103 mEq/L (98-107)
[2022-01-08 08:00] VITALS: BP 149/70
[2022-01-08] MEDS: SUCRALFATE 1G TABLET PO SCH ×2 (09:03→12:54)
[2022-01-08] MEDS: METHYLPREDNISOLONE SOD SUCC 40 MG/ML VIAL IV SCH (09:03)
[2022-01-08] MEDS: PANTOPRAZOLE 40MG DR TABLET PO SCH (09:03)
[2022-01-08] MEDS: MESALAMINE 400 MG CAPSULE.DR PO SCH ×2 (09:04→12:54)
[2022-01-08 11:08] LABS: HEMATOCRIT 30.9 % (36.0-48.0); HEMOGLOBIN 9.9 g/dL (12.0-16.0)
[2022-01-08 12:00] VITALS: BP 130/66
[2022-01-08 12:38] VITALS: BP 130/66
[2022-01-08 13:37] LABS: PLATELET ESTIMATE NORMAL
== END 2022-01-08 15:21 | disposition home health service (06) | DRG 206 ==
LOC: ER 16:00 → EDBEDREQTM 22:41 → EDBEDREQ 22:41 → MICUSO 01-02 00:07 → 6WST 01-02 00:57
PROVIDERS: ADMIT Internal Medicine; ATTEND Internal Medicine
PROC: 30233N1 Transfusion of Nonautologous Red Blood Cells into Peripheral Vein, Percutaneous Approach (ICD-10-PCS; 2022-01-03)
PROC: 05JY3ZZ Inspection of Upper Vein, Percutaneous Approach (ICD-10-PCS; principal; 2022-01-06)
PROC: B54MZZA Ultrasonography of Right Upper Extremity Veins, Guidance (ICD-10-PCS; 2022-01-06)
DX: T82.868A Thrombosis due to vascular prosthetic devices, implants and grafts, initial encounter (principal); I50.43 Acute on chronic combined systolic (congestive) and diastolic (congestive) heart failure; E46 Unspecified protein-calorie malnutrition; I82.A11 Acute embolism and thrombosis of right axillary vein; K29.71 Gastritis, unspecified, with bleeding; L89.153 Pressure ulcer of sacral region, stage 3; I11.0 Hypertensive heart disease with heart failure; R78.81 Bacteremia; D25.9 Leiomyoma of uterus, unspecified; I82.B11 Acute embolism and thrombosis of right subclavian vein; T47.8X6A Underdosing of other agents primarily affecting gastrointestinal system, initial encounter; M19.90 Unspecified osteoarthritis, unspecified site; K51.911 Ulcerative colitis, unspecified with rectal bleeding; D50.9 Iron deficiency anemia, unspecified; Y84.8 Other medical procedures as the cause of abnormal reaction of the patient, or of later complication, without mention of misadventure at the time of the procedure; E78.00 Pure hypercholesterolemia, unspecified; B96.89 Other specified bacterial agents as the cause of diseases classified elsewhere; Z86.718 Personal history of other venous thrombosis and embolism; Z91.19 Patient's noncompliance with other medical treatment and regimen; Y92.89 Other specified places as the place of occurrence of the external cause; Z68.35 Body mass index [BMI] 35.0-35.9, adult; Z91.048 Other nonmedicinal substance allergy status; Z79.899 Other long term (current) drug therapy
CPT/HCPCS: 36415; 71045; 76830; 76856; 80048; 80053; 82040; 82962; 83036; 83880; 84134; 84443; 84484; 85014; 85018; 85025; 86850; 86900; 86920; 99291; C1769; C1893; C9113; J1644; J1650; J2250; J2920; J3010; J3490; J7512; P9016; Q9967

== ENCOUNTER 2022-08-17 14:19 | Inpatient (IN) | payer MEDICARE, OTHER ==
[~2022-08-17] VITALS: Ht 160 cm; Wt 73.5 kg
[2022-08-17 21:12] LABS: EOSINOPHILS % 4.9 % (0.0-5.0); HEMATOCRIT. 22.1 % (36.0-48.0); LYMPHOCYTES % 24.4 % (20.0-50.0); MEAN CORPUSCULAR HEMOGLOBIN 21.7 pg (28.0-32.0); MEAN CORPUSCULAR VOLUME 72.9 fL (81.0-99.0); MEAN PLATELET VOLUME 7.5 fl (7.4-10.4); MONOCYTES % 12.6 % (2.0-8.0); NEUTROPHILS % 57.1 % (40.0-76.0); PLATELET 283 x1000/uL (130-400); RED BLOOD CELL COUNT 3.03 mill/uL (4.2-5.4); RED CELL DISTRIBUTION WIDTH 19.7 % (11.6-14.6)
[2022-08-17 21:20] LABS: INR 1.1; PROTHROMBIN TIME 11.3 sec (9.6-11.0)
[2022-08-17 21:24] LABS: CHLORIDE 108 mEq/L (98-107)
[2022-08-17 21:26] LABS: HEMOGLOBIN. 6.6 g/dL (12.0-16.0)
[2022-08-17] MEDS ORDERED: SODIUM CHLORIDE 0.9% 1,000 ML IV ONE (23:15)
[2022-08-18] VITALS (9 sets, daily range): BP systolic 133–165; BP diastolic 79–97
[2022-08-18] MEDS ORDERED: PANTOPRAZOLE SODIUM 40 MG/VIAL IV ONE (00:30)
[2022-08-18] MEDS ORDERED: NALOXONE HCL 0.4MG/ML VIAL IV PRN (06:30)
[2022-08-18 06:40] LABS: MEAN CORPUSCULAR HEMOGLOBIN 22.8 pg (28.0-32.0); MEAN CORPUSCULAR VOLUME 74.4 fL (81.0-99.0); MEAN PLATELET VOLUME 7.5 fl (7.4-10.4); PLATELET 189 x1000/uL (130-400)
[2022-08-18 06:51] LABS: HEMATOCRIT. 18.6 % (36.0-48.0); HEMOGLOBIN. 5.7 g/dL (12.0-16.0)
[2022-08-18] MEDS: HYDROCODONE/ACETAMINOPHEN 10/325MG TABLET PO PRN ×2 (06:52→22:32)
[2022-08-18 07:23] LABS: CLARITY URINE CLOUDY (CLEAR); COLOR URINE YELLOW (YELLOW); KETONES URINE NEGATIVE (NEGATIVE); LEUKOCYTE ESTERASE URINE 3+ (NEGATIVE); NITRITE URINE NEGATIVE (NEGATIVE); OCCULT BLOOD URINE 3+ (NEGATIVE); PROTEIN URINE 1+ (NEGATIVE); SPECIFIC GRAVITY URINE 1.014 (1.005-1.030); UROBILINOGEN URINE 0.2 E.U./dL (0.2-1.0)
[2022-08-18 07:43] LABS: PLATELET ESTIMATE NORMAL
[2022-08-18] MEDS ORDERED: ACETAMINOPHEN 325MG TABLET PO PRN (08:30)
[2022-08-18] MEDS ORDERED: ONDANSETRON HCL 4MG/2ML INJ IV PRN (08:30)
[2022-08-18] MEDS: SODIUM CHLORIDE 0.45% 1,000 ML IV SCH (08:56)
[2022-08-18] MEDS ORDERED: CEFTRIAXONE 1 G PREMIX 50 ML IV SCH (09:00)
[2022-08-18] MEDS: PANTOPRAZOLE SODIUM 40 MG/VIAL IV SCH ×2 (14:31→15:31)
[2022-08-18] MEDS: CEFTRIAXONE 1,000 MG in DEXTROSE 5% WATER 50 ML IV SCH (15:55)
[2022-08-18 15:59] LABS: TOTAL IRON BINDING CAPACITY 394 ug/dL (250-450)
[2022-08-18 16:28] LABS: VITAMIN B12 SERUM 592 pg/mL (211-911)
[2022-08-18 16:34] LABS: FERRITIN < 5 ng/mL (10-291)
[2022-08-18] MEDS: MESALAMINE 400 MG CAPSULE.DR PO SCH (17:46)
[2022-08-18] MEDS ORDERED: INFLUENZA VACCINE 05/PF 0.5 ML SYRINGE IM ONE (19:45)
[2022-08-18] MEDS ORDERED: PNEUMOCOCCAL 23-VAL P-SAC VAC 0.5 ML IM ONE (19:45)
[2022-08-18] MEDS ORDERED: CLONIDINE 0.1MG TABLET PO PRN (20:00)
[2022-08-18] MEDS: METHYLPREDNISOLONE SOD SUCC 125 MG/2 ML VIAL IV SCH (20:48)
[2022-08-18 21:05] LABS: HEPATITIS B SURFACE ANTIGEN NEGATIVE
[2022-08-19] VITALS: BP 157/89
[2022-08-19 00:46] LABS: HEMATOCRIT 26.7 % (36.0-48.0); HEMOGLOBIN 8.4 g/dL (12.0-16.0)
[2022-08-19 04:00] VITALS: BP 143/106
[2022-08-19] MEDS: SODIUM CHLORIDE 0.45% 1,000 ML IV SCH (05:26)
[2022-08-19 05:47] LABS: INR 1.1; PROTHROMBIN TIME 11.7 sec (9.6-11.0)
[2022-08-19 06:39] LABS: BASOPHILS % 0.3 % (0.0-2.0); EOSINOPHILS % 0.1 % (0.0-5.0); HEMOGLOBIN. 8.7 g/dL (12.0-16.0); LYMPHOCYTES % 11.4 % (20.0-50.0); MEAN CORPUSCULAR HEMOGLOBIN 23.4 pg (28.0-32.0); MEAN PLATELET VOLUME 7.8 fl (7.4-10.4); MONOCYTES % 1.4 % (2.0-8.0); NEUTROPHILS % 86.8 % (40.0-76.0); PLATELET 248 x1000/uL (130-400); RED BLOOD CELL COUNT 3.73 mill/uL (4.2-5.4); RED CELL DISTRIBUTION WIDTH 19.1 % (11.6-14.6)
[2022-08-19 07:34] LABS: CHLORIDE 109 mEq/L (98-107)
[2022-08-19 08:00] VITALS: BP 161/90
[2022-08-19] MEDS: MESALAMINE 400 MG CAPSULE.DR PO SCH ×3 (08:19→16:17)
[2022-08-19] MEDS: PANTOPRAZOLE SODIUM 40 MG/VIAL IV SCH ×2 (08:19→16:16)
[2022-08-19] MEDS: METHYLPREDNISOLONE SOD SUCC 125 MG/2 ML VIAL IV SCH ×2 (08:19→21:08)
[2022-08-19] MEDS: IRON SUCROSE COMPLEX 100 MG/5 ML ML IV SCH (10:15)
[2022-08-19 12:59] VITALS: BP 134/62
[2022-08-19] MEDS: CEFTRIAXONE 1,000 MG in DEXTROSE 5% WATER 50 ML IV SCH (14:13)
[2022-08-19 16:24] VITALS: BP 154/97
[2022-08-19 20:00] VITALS: BP 162/99
[2022-08-20] VITALS: BP 158/99
[2022-08-20] MEDS: SODIUM CHLORIDE 0.45% 1,000 ML IV SCH (00:30)
[2022-08-20 04:00] VITALS: BP 139/92
[2022-08-20 06:18] LABS: BASOPHILS % 0.3 % (0.0-2.0); HEMATOCRIT. 26.4 % (36.0-48.0); HEMOGLOBIN. 8.3 g/dL (12.0-16.0); LYMPHOCYTES % 9.3 % (20.0-50.0); MEAN CORPUSCULAR HEMOGLOBIN 23.4 pg (28.0-32.0); MEAN PLATELET VOLUME 7.7 fl (7.4-10.4); MONOCYTES % 3.9 % (2.0-8.0); NEUTROPHILS % 86.5 % (40.0-76.0); PLATELET 280 x1000/uL (130-400); RED BLOOD CELL COUNT 3.57 mill/uL (4.2-5.4); RED CELL DISTRIBUTION WIDTH 19.8 % (11.6-14.6)
[2022-08-20 07:08] LABS: CHLORIDE 106 mEq/L (98-107)
[2022-08-20 08:24] VITALS: BP 158/79
[2022-08-20] MEDS: PANTOPRAZOLE SODIUM 40 MG/VIAL IV SCH (09:14)
[2022-08-20] MEDS: MESALAMINE 400 MG CAPSULE.DR PO SCH ×2 (09:14→14:23)
[2022-08-20] MEDS: IRON SUCROSE COMPLEX 100 MG/5 ML ML IV SCH (09:15)
[2022-08-20] MEDS: METHYLPREDNISOLONE SOD SUCC 125 MG/2 ML VIAL IV SCH (09:15)
[2022-08-20] MEDS ORDERED: MESA800T PO (11:38)
[2022-08-20] MEDS ORDERED: P20 PO (11:38)
[2022-08-20] MEDS ORDERED: LEVO-65 MT (11:39)
[2022-08-20 12:19] VITALS: BP 153/89
[2022-08-20] MEDS ORDERED: AZITHROMYCIN 500 MG TABLET PO SCH (14:45)
[2022-08-20 16:08] VITALS: BP 153/78
[2022-08-20 16:37] VITALS: BP 159/94
[2022-08-25 04:07] LABS: OVA & PARASITE EXAM Final report (.)
== END 2022-08-20 17:27 | disposition home or self-care (01) | DRG 248 ==
LOC: ER 14:19 → 7WST 08-18 00:20 → EDBEDREQDT 08-18 00:22 → EDBEDREQTM 08-18 00:22 → EDBEDREQ 08-18 00:22
PROVIDERS: ADMIT Internal Medicine; ATTEND Internal Medicine
PROC: 30233N1 Transfusion of Nonautologous Red Blood Cells into Peripheral Vein, Percutaneous Approach (ICD-10-PCS; principal; 2022-08-18)
DX: A04.9 Bacterial intestinal infection, unspecified (principal); D50.9 Iron deficiency anemia, unspecified; K92.1 Melena; K80.20 Calculus of gallbladder without cholecystitis without obstruction; K64.4 Residual hemorrhoidal skin tags; I10 Essential (primary) hypertension; D72.825 Bandemia; N39.0 Urinary tract infection, site not specified; E78.00 Pure hypercholesterolemia, unspecified; M19.90 Unspecified osteoarthritis, unspecified site; Z79.1 Long term (current) use of non-steroidal anti-inflammatories (NSAID); Z87.11 Personal history of peptic ulcer disease; Z86.718 Personal history of other venous thrombosis and embolism; Z88.8 Allergy status to other drugs, medicaments and biological substances; Z79.899 Other long term (current) drug therapy
CPT/HCPCS: 36415; 71045; 74176; 80048; 80053; 81003; 82270; 82607; 82728; 82746; 83540; 83550; 83880; 84484; 85014; 85018; 85025; 85044; 86803; 86850; 86900; 86920; 87015; 87045; 87177; 87209; 87340; 87427; 87449; 87493; 89055; 90686; 90732; 93005; 93970; 99291; C1893; C9113; J0696; J2930; J7030; J7060; P9016

== ENCOUNTER 2022-12-05 14:50 | Emergency (ER) | payer MEDICARE, MEDICAID ==
[~2022-12-05] VITALS: Ht 162.6 cm; Wt 95.0 kg
[~2022-12-05 14:50] MED LIST changes: +LEVO-65 MT
[2022-12-05] MEDS ORDERED: SODIUM CHLORIDE 0.9% 1,000 ML IV ONE (15:45)
[2022-12-05 16:02] LABS: BASOPHILS % 0.9 % (0.0-2.0); EOSINOPHILS % 3.6 % (0.0-5.0); HEMATOCRIT. 33.8 % (36.0-48.0); HEMOGLOBIN. 10.9 g/dL (12.0-16.0); LYMPHOCYTES % 34.9 % (20.0-50.0); MEAN CORPUSCULAR HEMOGLOBIN 27.5 pg (28.0-32.0); MEAN CORPUSCULAR VOLUME 85.4 fL (81.0-99.0); MEAN PLATELET VOLUME 8.2 fl (7.4-10.4); MONOCYTES % 8.6 % (2.0-8.0); PLATELET 205 x1000/uL (130-400); RED BLOOD CELL COUNT 3.96 mill/uL (4.2-5.4); RED CELL DISTRIBUTION WIDTH 19.8 % (11.6-14.6)
[2022-12-05 16:03] LABS: CLARITY URINE CLEAR (CLEAR); COLOR URINE YELLOW (YELLOW); KETONES URINE NEGATIVE (NEGATIVE); LEUKOCYTE ESTERASE URINE NEGATIVE (NEGATIVE); NITRITE URINE NEGATIVE (NEGATIVE); OCCULT BLOOD URINE TRACE (NEGATIVE); PROTEIN URINE 2+ (NEGATIVE); SPECIFIC GRAVITY URINE 1.023 (1.005-1.030); UROBILINOGEN URINE 0.2 E.U./dL (0.2-1.0)
[2022-12-05 16:08] LABS: CHLORIDE 111 mEq/L (98-107)
[2022-12-05 16:45] LABS: INR 1.1; PARTIAL THROMBOPLASTIN TIME 26.3 sec (23.4-31.0); PROTHROMBIN TIME 11.4 sec (9.6-11.0)
[2022-12-05] MEDS ORDERED: ACETAMINOPHEN 325MG TABLET PO ONE (17:15)
[2022-12-05] MEDS ORDERED: LIDO700A30 TP (21:10)
[2022-12-05 21:36] VITALS: BP 159/77
== END 2022-12-05 21:45 | disposition home or self-care (01) ==
LOC: ER 15:46
DX: M79.10 Myalgia, unspecified site (principal); K92.1 Melena; E78.00 Pure hypercholesterolemia, unspecified; I10 Essential (primary) hypertension; K92.2 Gastrointestinal hemorrhage, unspecified; Z79.899 Other long term (current) drug therapy
CPT/HCPCS: 36415; 71045; 74176; 80053; 81003; 83690; 83880; 84484; 85025; 85610; 85730; 86850; 86900; 86901; 93005; 96360; 99291; J7030; Z7610

== ENCOUNTER 2025-05-12 06:55 | Inpatient (IN) | payer MEDICARE, MEDICAID ==
[~2025-05-12] VITALS: Ht 167.6 cm; Wt 122.5 kg
[2025-05-12] MEDS: BUDESONIDE 0.5MG/2ML NEB HHN SCH (01:39)
[~2025-05-12 06:55] MED LIST changes: +LIDO700A30 TP
[2025-05-12] MEDS: FUROSEMIDE 40MG/4ML VIAL IV ONE (08:00)
[2025-05-12 08:13] LABS: HEMATOCRIT. 38.6 % (36.0-48.0); HEMOGLOBIN. 12.7 g/dL (12.0-16.0); MEAN PLATELET VOLUME 7.6 fl (7.4-10.4); PLATELET 120 x1000/uL (130-400); RED BLOOD CELL COUNT 3.86 mill/uL (4.2-5.4); RED CELL DISTRIBUTION WIDTH 13.7 % (11.6-14.6)
[2025-05-12 08:26] LABS: CREATININE 1.3 mg/dL (0.6-1.0)
[2025-05-12 08:27] LABS: UREA NITROGEN BLOOD 10 mg/dL (9-23)
[2025-05-12 08:28] LABS: ASPARTATE AMINOTRANSFERASE 17 IU/L (<34); BILIRUBIN DIRECT 0.8 mg/dL (<=3.0); INR 1.1
[2025-05-12] MEDS: NITROGLYCERIN 50MG PREMIX 250 ML IV ONE (08:28)
[2025-05-12 08:29] LABS: BILIRUBIN TOTAL 2.7 mg/dL (0.1-1.0); PROTEIN TOTAL 7.3 g/dL (6.0-8.3)
[2025-05-12 08:44] LABS: TROPONIN I HIGH SENSITIVITY 43 ng/L (3.0-34)
[2025-05-12] MEDS: CLOPIDOGREL 75MG TABLET PO ONE (08:49)
[2025-05-12] MEDS: ASPIRIN 325MG EC TABLET PO ONE (08:50)
[2025-05-12 09:23] LABS: BAND% 15.0 % (1.0-6.0); LYMPHOCYTES % MANUAL 5.0 % (20.0-60.0); NEUTROPHILS % MANUAL 80.0 % (45.0-75.0); PLATELET ESTIMATE NORMAL
[2025-05-12] MEDS: CEFTRIAXONE 1GM/50ML 50 ML IV ONE (10:00)
[2025-05-12] MEDS: ACETAMINOPHEN 325MG TABLET PO ONE (10:18)
[2025-05-12] MEDS: SODIUM CHLORIDE 0.9% 500 ML IV ONE (10:28)
[2025-05-12] MEDS ORDERED: DOCUSATE SODIUM 100MG CAPSULE PO PRN (13:00)
[2025-05-12] MEDS ORDERED: DEXTROSE 50% WATER 50ML SYRINGE IV PRN (13:00)
[2025-05-12] MEDS ORDERED: ONDANSETRON HCL 4MG/2ML INJ IV PRN (13:00)
[2025-05-12] MEDS: DEXT 5%/0.45% NACL 500ML 500 ML IV ONE (13:45)
[2025-05-12] MEDS ORDERED: AZITHROMYCIN 500MG/250ML 250 ML IV SCH (15:00)
[2025-05-12] MEDS: SODIUM CHLORIDE 0.9% 250 ML IV ONE (15:30)
[2025-05-12] MEDS ORDERED: CLONIDINE 0.1MG TABLET PO PRN (15:30)
[2025-05-12 16:00] VITALS: BP 152/108; PULSE 100; RESP 20; TEMP 38.4; TEMP 38.4196; O2SAT 98
[2025-05-12] MEDS: CEFTRIAXONE 1GM/50ML 50 ML IV SCH (17:00)
[2025-05-12] MEDS: AZITHROMYCIN 500MG/250ML 250 ML IV SCH (19:01)
[2025-05-12 20:00] VITALS: BP 124/86; PULSE 123; RESP 24; TEMP 36.5; O2SAT 98
[2025-05-12] MEDS: ENOXAPARIN 40MG/0.4ML SYR SUBCUT SCH (21:09)
[2025-05-12 22:00] VITALS: PULSE 126; RESP 28; O2SAT 97
[2025-05-12 22:16] LABS: FOLIC ACID (FOLATE) SERUM 3.70 ng/mL (>5.38)
[2025-05-12 22:17] LABS: VITAMIN B12 SERUM 335 pg/mL (211-911)
[2025-05-12 22:18] LABS: TROPONIN I HIGH SENSITIVITY 102 ng/L (3.0-34)
[2025-05-12] MEDS: FUROSEMIDE 100MG/10ML VIAL IVP SCH (22:39)
[2025-05-12 22:50] LABS: HEPATITIS A AB IGM NEGATIVE (Negative); HEPATITIS B CORE AB IGM NEGATIVE (Negative)
[2025-05-12 22:52] LABS: HEPATITIS C AB NON REACTIVE (Neg) (Negative)
[2025-05-13] VITALS (10 sets, daily range): BP systolic 108–152; BP diastolic 49–86; PULSE 98–131; RESP 20–28; TEMP 36.3–39.8; O2SAT 92–100
[2025-05-13 01:00] LABS: BG BASE EXCESS 0.8 mmol/L (-2.0-3.0); BG CARBOXYHEMOGLOBIN 1.1 % (0.5-1.5); BG DEOXYHEMOGLOBIN 6.7 % (0.0-5.0); BG FLOW(L/min) 2.00 L/min; BG FRACTION INSPIRED OXYGEN 28; BG HCO3 ACT 22.9 mmol/L (21.0-28.0); BG METHEMOGLOBIN 0.1 % (0.5-1.5); BG OXYGEN SATURATION 93.2 % (94.0-98.0); BG OXYHEMOGLOBIN 92.1 % (94.0-98.0); BG PCO2 29.6 mmHg (32.0-45.0); BG PH 7.507 (7.350-7.450); BG PO2 60.1 mmHg (83.0-108.0); BG SAMPLE SITE RIGHT RADIAL; BG TOTAL HEMOGLOBIN 13.3 g/dL (12.0-16.0); BG VENT MODE NASAL CANNULA
[2025-05-13] MEDS: IPRATROPIUM BROMIDE (0.02%) 0.5MG/2.5ML NEB HHN SCH (01:39)
[2025-05-13 06:53] LABS: HEMATOCRIT. 37.6 % (36.0-48.0); HEMOGLOBIN. 12.3 g/dL (12.0-16.0); MEAN PLATELET VOLUME 8.4 fl (7.4-10.4); PLATELET 108 x1000/uL (130-400); RED BLOOD CELL COUNT 3.83 mill/uL (4.2-5.4); RED CELL DISTRIBUTION WIDTH 14.0 % (11.6-14.6)
[2025-05-13 07:14] LABS: CREATININE 1.6 mg/dL (0.6-1.0); TRIGLYCERIDE 110 mg/dL (0-150)
[2025-05-13 07:15] LABS: LDL CHOLESTEROL 39 mg/dL (5-100); UREA NITROGEN BLOOD 21 mg/dL (9-23)
[2025-05-13 07:17] LABS: PHOSPHORUS 2.3 mg/dL (2.5-4.9)
[2025-05-13 07:19] LABS: T4 FREE 1.17 ng/dL (0.89-1.76)
[2025-05-13 07:42] LABS: TROPONIN I HIGH SENSITIVITY 107 ng/L (3.0-34)
[2025-05-13 07:49] LABS: ETHANOL BLOOD < 10 mg/dL (<10)
[2025-05-13] MEDS ORDERED: CEFTRIAXONE 1GM/50ML 50 ML IV SCH (10:00)
[2025-05-13] MEDS: PANTOPRAZOLE SODIUM 40 MG/VIAL IV SCH (10:09)
[2025-05-13] MEDS: KCL 20MEQ/100ML PREMIX 100 ML IV NR (12:01)
[2025-05-13] MEDS ORDERED: CEFEPIME 1GM IN DEXT 5% 50ML IV SCH (12:45)
[2025-05-13] MEDS: MAGNESIUM 1 G PREMIX 100 ML IV NR (13:11)
[2025-05-13] MEDS: METOPROLOL TARTRATE 5MG/5ML VIAL IV SCH (13:26)
[2025-05-13] MEDS: NITROGLYCERIN 0.4MG TABLET SL SL PRN (13:49)
[2025-05-13] MEDS: CEFEPIME 1GM/50ML 50 ML IV SCH (14:54)
[2025-05-13] MEDS: ACETAMINOPHEN 325MG TABLET PO PRN (17:15)
[2025-05-13] MEDS ORDERED: MESALAMINE 400 MG CAPSULE.DR PO SCH (18:00)
[2025-05-13] MEDS: METOPROLOL TARTRATE 25MG TABLET PO SCH (19:00)
[2025-05-13 19:12] LABS: LYMPHOCYTES % MANUAL 6.0 % (20.0-60.0); MONOCYTES % MANUAL 9.0 % (2.0-8.0); NEUTROPHILS % MANUAL 85.0 % (45.0-75.0); PLATELET ESTIMATE DECREASED
[2025-05-13] MEDS: IPRATROPIUM/ALBUTEROL 0.5-3(2.5)MG/3ML NEB HHN PRN (19:57)
[2025-05-13] MEDS: AMLODIPINE 2.5MG TABLET PO SCH (21:00)
[2025-05-13] MEDS: GUAIFENESIN 200MG/10ML SUGAR FREE UDC PO PRN (21:18)
[2025-05-13] MEDS: ATORVASTATIN CALCIUM 20MG TABLET PO SCH (21:18)
[2025-05-13] MEDS: POTASSIUM PHOSPHATE 30 MMOL in DEXT 5% WATER 490 ML IV NR (21:19)
[2025-05-13] MEDS: ENOXAPARIN 150MG/ML SYR SUBCUT SCH (21:25)
[2025-05-13] MEDS: MESALAMINE 400 MG CAPSULE.DR PO SCH (22:00)
[2025-05-14] VITALS (9 sets, daily range): BP systolic 106–136; BP diastolic 50–79; PULSE 80–108; RESP 16–22; TEMP 36.2–37.8; O2SAT 92–100
[2025-05-14 07:21] LABS: PLATELET 93 x1000/uL (130-400); RED BLOOD CELL COUNT 3.46 mill/uL (4.2-5.4); RED CELL DISTRIBUTION WIDTH 14.1 % (11.6-14.6)
[2025-05-14 07:31] LABS: CREATININE 1.9 mg/dL (0.6-1.0)
[2025-05-14 07:33] LABS: TROPONIN I HIGH SENSITIVITY 69 ng/L (3.0-34)
[2025-05-14 07:34] LABS: UREA NITROGEN BLOOD 22 mg/dL (9-23)
[2025-05-14 07:36] LABS: PHOSPHORUS 4.0 mg/dL (2.5-4.9)
[2025-05-14] MEDS: FAMOTIDINE 20MG/2ML VIAL IV SCH (08:57)
[2025-05-14] MEDS: SODIUM CHLORIDE 0.9% 250 ML IV ONE (14:36)
[2025-05-14 15:41] LABS: COLOR URINE YELLOW (YELLOW)
[2025-05-14 15:42] LABS: CLARITY URINE TURBID (CLEAR); GLUCOSE URINE NEGATIVE (NEGATIVE); KETONES URINE NEGATIVE (NEGATIVE); NITRITE URINE NEGATIVE (NEGATIVE); OCCULT BLOOD URINE 3+ (NEGATIVE); PH URINE 5.5 (4.5-8.0); PROTEIN URINE 2+ (NEGATIVE); SPECIFIC GRAVITY URINE 1.013 (1.005-1.030)
[2025-05-14 15:43] LABS: LEUKOCYTE ESTERASE URINE 3+ (NEGATIVE); UROBILINOGEN URINE 0.2 E.U./dL (0.2-1.0)
[2025-05-14 15:57] LABS: BACTERIA URINE 4+; SQUAMOUS EPITHELIAL CELL URINE 1+ /lpf (RARE/1+)
[2025-05-14 15:58] LABS: RBC URINE 25-50 /hpf (0-2); WBC URINE TNTC /hpf (0-2)
[2025-05-14 15:59] LABS: FINE GRANULAR CASTS URINE 0-5 /lpf
[2025-05-14 16:18] LABS: *AMPHETAMINES SCREEN URINE NEGATIVE (NEGATIVE); *BARBITURATES SCREEN URINE NEGATIVE (NEGATIVE); *BENZODIAZEPINES SCREEN URINE NEGATIVE (NEGATIVE); *COCAINE SCREEN URINE NEGATIVE (NEGATIVE); CREATININE URINE RANDOM 113.7 mg/dL; METHADONE URINE SCREEN NEGATIVE (NEGATIVE); OPIATES URINE SCREEN NEGATIVE (NEGATIVE)
[2025-05-14 16:19] LABS: CANNABINOID URINE SCREEN NEGATIVE (NEGATIVE); ECSTASY MDMA SCREEN URINE NEGATIVE (NEGATIVE); PHENCYCLIDINE URINE SCREEN NEGATIVE (NEGATIVE)
[2025-05-14 16:49] LABS: INFLUENZA TYPE A Presumptive Negative (Pres. Neg.)
[2025-05-14 17:05] LABS: INFLUENZA TYPE B Presumptive Negative (Pres. Neg.)
[2025-05-14 17:07] LABS: RESPIRATORY SYNCYTIAL VIRUS Not Detected (Not Detectd)
[2025-05-14 17:37] LABS: OSMOLALITY URINE 325.0 mOsm/kg (500-850)
[2025-05-14] MEDS: CARVEDILOL 3.125 MG TABLET PO SCH (21:08)
[2025-05-15] VITALS (10 sets, daily range): BP systolic 103–142; BP diastolic 65–87; PULSE 75–101; RESP 16–18; TEMP 36.4–37.2; O2SAT 96–100
[2025-05-15 08:48] LABS: BASOPHILS % 0.2 % (0.0-2.0); EOSINOPHILS % 1.5 % (0.0-5.0); HEMATOCRIT. 31.1 % (36.0-48.0); HEMOGLOBIN. 10.5 g/dL (12.0-16.0); LYMPHOCYTES % 12.2 % (20.0-50.0); MEAN PLATELET VOLUME 9.2 fl (7.4-10.4); MONOCYTES % 10.6 % (2.0-8.0); NEUTROPHILS % 75.5 % (40.0-76.0); PLATELET 91 x1000/uL (130-400); RED BLOOD CELL COUNT 3.19 mill/uL (4.2-5.4); RED CELL DISTRIBUTION WIDTH 14.2 % (11.6-14.6)
[2025-05-15 09:03] LABS: CREATININE 1.6 mg/dL (0.6-1.0); UREA NITROGEN BLOOD 27 mg/dL (9-23)
[2025-05-16] VITALS (9 sets, daily range): BP systolic 119–147; BP diastolic 68–81; PULSE 87–102; RESP 16–20; TEMP 36.3–37; O2SAT 95–99
[2025-05-16 06:48] LABS: CREATININE 1.3 mg/dL (0.6-1.0)
[2025-05-16 06:49] LABS: UREA NITROGEN BLOOD 25.0 mg/dL (9-23)
[2025-05-16 06:56] LABS: PLATELET 106 x1000/uL (130-400); RED BLOOD CELL COUNT 3.15 mill/uL (4.2-5.4); RED CELL DISTRIBUTION WIDTH 14.0 % (11.6-14.6)
[2025-05-16] MEDS: ENOXAPARIN 40MG/0.4ML SYR SUBCUT SCH (08:31)
[2025-05-16 11:30] LABS: BG BASE EXCESS 3.5 mmol/L (-2.0-3.0); BG CARBOXYHEMOGLOBIN 1.0 % (0.5-1.5); BG DEOXYHEMOGLOBIN 7.7 % (0.0-5.0); BG FRACTION INSPIRED OXYGEN 21; BG HCO3 ACT 27.3 mmol/L (21.0-28.0); BG METHEMOGLOBIN 0.2 % (0.5-1.5); BG OXYGEN SATURATION 92.2 % (94.0-98.0); BG OXYHEMOGLOBIN 91.1 % (94.0-98.0); BG PCO2 38.4 mmHg (32.0-45.0); BG PH 7.470 (7.350-7.450); BG PO2 58.7 mmHg (83.0-108.0); BG SAMPLE SITE RIGHT RADIAL; BG TOTAL HEMOGLOBIN 11.4 g/dL (12.0-16.0); BG VENT MODE ROOM AIR
[2025-05-16] MEDS: FUROSEMIDE 40MG/4ML VIAL IVP SCH (14:43)
[2025-05-16] MEDS: CEFEPIME 2GM PREMIX 100ML IV SCH (21:18)
[2025-05-17] VITALS (9 sets, daily range): BP systolic 115–156; BP diastolic 67–101; PULSE 78–92; RESP 17–20; TEMP 35.7–36.7; O2SAT 95–100
[2025-05-17] MEDS ORDERED: CARV3.1242 MT (02:07)
[2025-05-17] MEDS ORDERED: LEVO250T74 MT (02:07)
[2025-05-17] MEDS: MENTHOL/LANOLIN/CALAMINE/ZN OX OINT 71GM TOP SCH (12:21)
[2025-05-17] MEDS ORDERED: LEVO750T68 MT (13:17)
[2025-05-17] MEDS: AZITHROMYCIN 500 MG TABLET PO SCH (16:26)
[2025-05-18] VITALS (7 sets, daily range): BP systolic 127–165; BP diastolic 66–93; PULSE 79–93; RESP 16–19; TEMP 36.4–37.3; O2SAT 96–99
[2025-05-19] VITALS: BP 133/83; PULSE 86; RESP 16; TEMP 36.7; O2SAT 95
[2025-05-19 04:00] VITALS: BP 139/82; PULSE 86; RESP 18; TEMP 36.5; O2SAT 96
[2025-05-19 08:00] VITALS: BP 138/92; PULSE 81; RESP 20; TEMP 36.6; O2SAT 95
[2025-05-19 08:37] LABS: HEMATOCRIT. 30.9 % (36.0-48.0); HEMOGLOBIN. 10.3 g/dL (12.0-16.0); MEAN PLATELET VOLUME 8.3 fl (7.4-10.4); PLATELET 250 x1000/uL (130-400); RED BLOOD CELL COUNT 3.14 mill/uL (4.2-5.4); RED CELL DISTRIBUTION WIDTH 13.4 % (11.6-14.6)
[2025-05-19 08:50] LABS: CREATININE 0.9 mg/dL (0.6-1.0)
[2025-05-19 08:51] LABS: UREA NITROGEN BLOOD 17 mg/dL (9-23)
[2025-05-19 08:54] LABS: CREATININE 0.9 mg/dL (0.6-1.0); UREA NITROGEN BLOOD 17 mg/dL (9-23)
[2025-05-19] MEDS: POTASSIUM CHLORIDE 20MEQ/PACKET PO SCH (11:14)
[2025-05-19 12:00] VITALS: BP 129/93; PULSE 81; RESP 20; TEMP 36.8; O2SAT 95
[2025-05-19 19:00] LABS: EOSINOPHILS % MANUAL 2.0 % (0.0-5.0); LYMPHOCYTES % MANUAL 22.0 % (20.0-60.0); MONOCYTES % MANUAL 12.0 % (2.0-8.0); NEUTROPHILS % MANUAL 64.0 % (45.0-75.0); PLATELET ESTIMATE NORMAL
== END 2025-05-19 15:09 | disposition home health service (06) | DRG 871 ==
LOC: ER 07:21 → 8WST 09:10 → EDBEDREQTM 09:13 → EDBEDREQ 09:13 → EDBEDREQSVC 09:13 → ENRESERV 13:45 → 8EST 05-17 16:48
PROVIDERS: ADMIT Internal Medicine; ATTEND Internal Medicine
DX: A41.51 Sepsis due to Escherichia coli [E. coli] (principal); G92.8 Other toxic encephalopathy; J96.01 Acute respiratory failure with hypoxia; I21.A1 Myocardial infarction type 2; E87.20 Acidosis, unspecified; L89.156 Pressure-induced deep tissue damage of sacral region; N17.9 Acute kidney failure, unspecified; D69.6 Thrombocytopenia, unspecified; I11.0 Hypertensive heart disease with heart failure; D64.9 Anemia, unspecified; I35.0 Nonrheumatic aortic (valve) stenosis; E66.01 Morbid (severe) obesity due to excess calories; I42.9 Cardiomyopathy, unspecified; K51.90 Ulcerative colitis, unspecified, without complications; Z68.41 Body mass index [BMI] 40.0-44.9, adult; E80.6 Other disorders of bilirubin metabolism; E78.00 Pure hypercholesterolemia, unspecified; E87.6 Hypokalemia; E83.42 Hypomagnesemia; R73.03 Prediabetes; Z87.440 Personal history of urinary (tract) infections; Z86.718 Personal history of other venous thrombosis and embolism; Z79.899 Other long term (current) drug therapy
CPT/HCPCS: 36415; 36600; 71045; 78580; 80048; 80061; 80076; 80305; 80320; 81003; 82140; 82375; 82550; 82570; 82607; 82746; 82805; 82962; 83036; 83605; 83735; 83880; 83935; 84100; 84145; 84300; 84439; 84443; 84484; 85025; 85027; 85379; 86705; 86706; 86709; 86850; 86900; 87077; 87186; 87340; 87420; 87804; 93005; 93306; 93923; 93970; 94070; 94640; 94664; 97162; 97166; 97530; 98960; 99291; J0456; J0692; J0696; J1308; J1650; J1938; J2470; J3475; J3480; J3490; J7040; J7060; J7626; G0480